=== PATIENT | female | born 1940 | race Hispanic/Latino ===

== ENCOUNTER 2021-12-28 13:49 | Outpatient (CLI) | payer OTHER, MEDICAID ==
[~2021-12-28 13:49] MED LIST: Iopamidol 300 61% 100 ML VIAL FS ONE
== END 2021-12-28 13:50 | disposition home or self-care (01) ==
LOC: CSHCT 13:49
PROVIDERS: ATTEND Physician Assistant Medical
DX: R63.0 Anorexia (principal); R63.4 Abnormal weight loss; D64.9 Anemia, unspecified
CPT/HCPCS: 74177